=== PATIENT | male | born 1990 ===

== ENCOUNTER 2016-08-01 15:04 | Emergency (ER) | payer MEDICAID ==
[2016-08-01 16:01] VITALS: BP 122/72; PULSE 64; RESP 16; TEMP 98.7; O2SAT 98
--- NOTE | 2016-08-01 16:06 | ED PDOC ---
HPI: General Adult Time Seen by Provider: 08/01/16 15:38 Chief Complaint (Nursing): Lower Extremity Problem/Injury History Per: Patient Onset/Duration Of Symptoms: Days Current Symptoms Are (Timing): Still Present Additional Complaint(s): 26-year-old male, presents to the emergency department with complaints of foot pain. Patient states he sustained an inversion injury to his left foot while playing basketball a few weeks ago. Patient was seen in [place] and had a negative x-ray. States that pain persisted with associated swelling; the patient was seen outpatient by Dr. Beverly, had an x-ray that revealed a talus fracture, resulting in him being sent to the ED for further evaluation and admission for surgery. Patient denies numbness/weakness, nausea/vomiting, fevers , chills, or any other associated symptoms. No other complaints at this time. Past Medical History Reviewed: Historical Data, Nursing Documentation, Vital Signs Vital Signs: Last Vital Signs Temp 98.7 F 08/01/16 15:56 Pulse 64 08/01/16 15:56 Resp 16 08/01/16 15:56 BP 122/72 08/01/16 15:56 Pulse Ox 98 08/01/16 16:23 - Family History Family History: States: Unknown Family Hx - Immunization History Hx Tetanus Toxoid Vaccination: No Hx Influenza Vaccination: No Hx Pneumococcal Vaccination: No - Home Medications Home Medications: Ambulatory Orders Medication Instructions Recorded Famotidine [Pepcid] 40 mg PO DAILY #10 tablet 07/22/16 Naproxen 500 mg PO BID PRN #14 tab 07/22/16 - Allergies Allergies/Adverse Reactions: Allergies Allergy/AdvReac Type Severity Reaction Status Date / Time peanut Allergy RASH Verified 08/01/16 16:22 seafood Allergy Mild ITCHING Uncoded 08/01/16 15:55 Review of Systems ROS Statement: Except As Marked, All Systems Reviewed And Found Negative Constitutional: Negative for: Fever, Chills Gastrointestinal: Negative for: Nausea, Vomiting Musculoskeletal: Positive for: Foot Pain Physical Exam - Reviewed Nursing Documentation Reviewed: Yes Vital Signs Reviewed: Yes - Physical Exam Appears: Positive for: Non-toxic, No Acute Distress Head Exam: Positive for: ATRAUMATIC, NORMOCEPHALIC Skin: Positive for: Warm, Dry. Negative for: Rash Neck: Positive for: Painless ROM Respiratory: Negative for: Accessory Muscle Use, Respiratory Distress Extremity: Positive for: Tenderness, Capillary Refill (<2 SECONDS), Swelling, Other (LEFT LOWER EXT: MILD SWELLING AND TENDERNESS. ). Negative for: Pedal Edema, Calf Tenderness, Deformity Neurologic/Psych: Positive for: Alert, Oriented - ECG O2 Sat by Pulse Oximetry: 98 Medical Decision Making Medical Decision Making: Impression: 26y/o M, w/ Talus fracture diagnosed outpatient. Prior Visits Notes and records from previous visits were reviewed. Patient seen in [place] ED and had x-ray on 07/22/16, which did not reveal any acute findings. Plan: * CT: Lower Ext * Reassess and Disposition * Progress: Patient evaluated in ED podiatry resident, who states he will re-evaluate and discuss admission after CT results are back. podiatry evaluated pt and CT scan at this time no emergent surgery need placed in post. splint and advised to have f/u in 2 weeks for outpt surgery/ Scribe Attestation: Documented by Simone Fowler, acting as a scribe for LISETH Bar. Provider Attestation: All medical record entries made by the Scribe were at my direction and personally dictated by me. I have reviewed the chart and agree that the record accurately reflects my personal performance of the history, physical exam, medical decision making, and the department course for this patient. I have also personally directed, reviewed, and agree with the discharge instructions and disposition. Disposition - Clinical Impression Clinical Impression: Ankle fracture - Patient ED Disposition Is Patient to be Admitted: No Counseled Patient/Family Regarding: Studies Performed, Diagnosis, Need For Followup - Disposition Referrals: Podiatry Clinic [Outside] Disposition: Routine/Home Disposition Time: 17:47 Condition: STABLE Instructions: Ankle Fracture (ED)
--- NOTE | 2016-08-01 17:26 | CT ---
PROCEDURE: HISTORY: ankle pain fx to talus COMPARISON: TECHNIQUE: FINDINGS: Minimal avulsion fracture along the medial malleolus with scattered tiny bony fragments in the medial gutter the largest measuring roughly 4 millimeters. The largest is well defined and is probably chronic. Otherwise the ankle mortise and subtalar joint are intact. No gross displaced IMPRESSION: Fracture is observed. There is no significant joint effusion. The soft tissues are otherwise unremarkable. Likely chronic medial malleolar avulsion fracture with scattered tiny but relatively well-defined osseous fragments in the medial gutter.
--- NOTE | 2016-08-01 17:28 | CP.PCM.CON ---
History of Present Illness - History of Present Illness History of Present Illness: Podiatry Consult Note. 26 year old male seen in [facility] concerning left ankle pain s/p left ankle injury suffered 3 weeks prior. Pt followed up with attending. Dr. Beverly in office who recommended pt to [facility] ER as due o chroicity of symptoms. Pt rports he has remained no weight-bearing to the left leg using splint and crutches, and has taken prescribed NSAIDS, which he noted have greatly reduced swelling. Pt deneis recent f/c/cp/sob/n/v. PMD: none PMH: Denies remarkable medical history. PSH: Denies surgical history. All: Seafood, peanuts Socia hx: Employed, homed. Admits to marijuana usage. Denies tobacco use, and alcohol abuse. Fam Hx: Denies remarkable family health history. ROS: Reviewed and found to be negative outside of HPI. Review of Systems - Review of Systems All systems: reviewed and no additional remarkable complaints except Past Patient History - Infectious Disease Hx of Infectious Diseases: None - Past Social History Smoking Status: Former Smoker - PSYCHIATRIC Hx Psychophysiologic Disorder: No Hx Substance Use: No - SURGICAL HISTORY Hx Surgeries: No - ANESTHESIA Hx Anesthesia: No Meds Allergies/Adverse Reactions: Allergies Allergy/AdvReac Type Severity Reaction Status Date / Time peanut Allergy RASH Verified 08/01/16 16:22 seafood Allergy Mild ITCHING Uncoded 08/01/16 15:55 Physical Exam - Constitutional Appears: Well, Non-toxic, No Acute Distress - Extremities Exam Additional comments: Left lower Extremity focused. VASC: DP and PT pulses are fully palpable bilaterally, graded 2/4. Mild non- pitting edema noted at level of ankle joint. Temperature gradient runs warms to cool from proximal leg to distal foot within normal limits. CRF <3 seconds to ll 10 digits. DERM: No open wounds or macerations noted. No abrasion, bite pineda, hyperpigmentations, or cixatrix noted bilaterally. Nails are normorophic. NEURO: Protective sensation grossly intact. ORTHO: Pedal muscle strength is graded 5/5 in all 4 major pedal muscle groups. Tenderness to palpation noted along medial malleolus, and long stress plantar- flexion and dorsi-flexion of ankle joint. No pain illicited in mid-tarsal inversion and eversion not in STJ range of motion. - Neurological Exam Neurological exam: Alert, Oriented x3 - Psychiatric Exam Psychiatric exam: Normal Affect, Normal Mood - Skin Skin Exam: Intact, Normal Color, Warm Results - Vital Signs Recent Vital Signs: Last Vital Signs Temp 98.7 F 08/01/16 15:56 Pulse 64 08/01/16 15:56 Resp 16 08/01/16 15:56 BP 122/72 08/01/16 15:56 Pulse Ox 98 08/01/16 16:23 Assessment & Plan - Assessment and Plan (Free Text) Assessment: 26 year old male with left ankle closed, displaced medial malleolar fracture. Plan: Pt seen and evaluated, Discussed with attending . - Left Foot CT scan ordered, results reviewed, no talar fracture noted, medial malleolar fracture noted. - Discussed with patient Ct finding and need for surgical intervention of displaced malleolus and fragments within ankle joint space. - Pt to be Non-weightbearing in below knee cast w/ axillary crutches. - All patients questions and concerns were addressed to patient's satisfaction. F/U in [facility] podiatry clinic within 1 week for surgical planning. - Date & Time Date: 08/01/16 Time: 16:00
== END 2016-08-01 18:20 | disposition home or self-care (01) ==
LOC: H.ER 15:04
DX: S92.102A Unspecified fracture of left talus, initial encounter for closed fracture (principal); X50.9XXA Other and unspecified overexertion or strenuous movements or postures, initial encounter; Y92.320 Baseball field as the place of occurrence of the external cause

== ENCOUNTER 2016-08-12 06:27 | Day surgery (SDC) | payer MEDICAID ==
[2016-08-04 15:13] VITALS: BMI 27.8
[2016-08-12 07:01] VITALS: RESP 18
[2016-08-12] MEDS ORDERED: Phenylephrine 10 mg/ml Inj ONE (07:04)
[2016-08-12] MEDS ORDERED: Rocuronium 10 mg/ml (5 ml) ONE (07:04)
[2016-08-12] MEDS ORDERED: Midazolam 2 MG/2 ML VIAL ONE (07:04)
[2016-08-12] MEDS ORDERED: Succinylcholine 200 mg/10 ml Inj IV ONE (07:04)
[2016-08-12] MEDS ORDERED: Propofol 10 mg/ml Inj (20 ML) ONE ×2 (07:04→07:54)
--- NOTE | 2016-08-12 07:12 | CP.PCM.PN ---
Subjective - Date & Time of Evaluation Date of Evaluation: 08/12/16 Time of Evaluation: 06:50 - Subjective Subjective: 26 year old male seen at bedside concerning left ankle fracture suffered 4 weeks prior. Pt has failed conservative management with cast and is now in need of surgical intervention. Pt reports he has been NPO since 9pm yesterday evening. Pt denies pain at this time to the affected ankle. Pt denies recent f/c /cp/sob/n/v. Objective - Vital Signs/Intake and Output Vital Signs (last 24 hours): Temp Pulse Resp BP Pulse Ox 98.2 F 66 18 133/74 99 08/12/16 07:00 08/12/16 07:04 08/12/16 07:00 08/12/16 07:00 08/12/16 07:00 - Constitutional Appears: Well, Non-toxic, No Acute Distress - Extremities Exam Additional comments: Left ankle focused. Cast intact to left ankle and is clean, dry, and intact Neuro-vascular and sensory motor function intact to level of digits bilaterally. - Neurological Exam Neurological Exam: Alert, Awake, Oriented x3 - Psychiatric Exam Psychiatric exam: Normal Affect, Normal Mood Assessment and Plan - Assessment and Plan (Free Text) Assessment: 26 year old male with left ankle closed, displaced medial malleolar fracture. Plan: Pt was seen and examined in [facility] Pt NPO status was confirmed All Pre-op testing and clearance was in the chart Pt has exhausted all conservative treatment at this time and is opting for surgical intervention Pt was explained procedure and post-operative course All pt's questions were answered to satisfaction No guarantees were made Pt understands all risks, benefits and complications of procedure Pt will follow-up with Dr. Haddad.
--- NOTE | 2016-08-12 07:17 | CP.SDSHP ---
Same Day Surgery H & P - History Proposed Procedure: Left ankle ORIF Pre-Op Diagnosis: Left ankle closed, displaced medial malleolar fracture. - Previous Medical/Surgical History Pain: 0. No Pain Previous Surgical History: No prior surgeries. - Allergies Allergies: Allergies peanut Allergy (Verified 08/01/16 16:22) RASH seafood Allergy (Mild, Uncoded 08/01/16 15:55) ITCHING - Current Medications Current Medications: None. - Physical Exam Vital Signs: Vital Signs 08/12/16 08/12/16 07:00 07:04 Temperature 98.2 F Pulse Rate 66 66 Respiratory 18 Rate Blood Pressure 133/74 O2 Sat by Pulse 99 Oximetry Mental Status: Alert & Oriented x3 Neuro: WNL Heart: WNL Lungs: WNL GI: WNL - {Optional Preform as Required} Integument: WNL Ortho: Other (NRadiographic noted medial ankle fracture. Full exam deffered due to cast remaining inplace until procedure. Neuro-muscular status and sensory motor function intact to level of digits bilaterally.) - Impression Impression: Pt was seen and examined in [facility]. Pt NPO status was confirmed. All Pre-op testing and clearance was in the chart. Pt has exhausted all conservative treatment at this time and is opting for surgical intervention. Pt was explained procedure and post-operative course. All pt's questions were answered to satisfaction. No guarantees were made. Pt understands all risks, benefits and complications of procedure. Pt will follow-up with Dr. Haddad. Pt. Evaluated Today:Candidate for Anesthesia & Procedure: Yes - Date & Time Date: 08/12/16 Time: 06:50 Short Stay Discharge - Short Stay Discharge Admitting Diagnosis/Reason for Visit: S82.52XA Disposition: HOME/ ROUTINE Medications: oxyCODONE/Acetaminophen [Percocet 5/325 mg Tab] 1 tab PO Q4 PRN #30 tab PRN Reason: Pain, Moderate (4-7) Referrals: FAMILY PROVIDER,NO [Primary Care Provider] - Vasiliy Haddad DPM [Staff Provider] - Follow-up: Follow-up in office within 1 week. Instructions: Oxycodone/Acetaminophen (By mouth), RICE Therapy (GEN) Additional Instructions (Diet, Activity): Patient in good/stable condition for discharge home. Pt to resume medications per medical reconciliation. Resume regular diet. Please keep dressing clean, dry, & intact to surgical site, use plastic bag over bandage for showering, wear post op shoe at all times when ambulating, call clinic if you see signs of infection (redness, swelling, malodor), please make an appointment to see Dr. Haddad in office within 1 week for post-op check. Progress Note/Discharge Note with Instructions: - Patient evaluated bedside in recovery s/p surgical procedure. - After surgical procedure patient in NAD - (+) Void, (+) Appetite - Capillary refill time <3s and NVSI intact. - Patient denies complaints at this time - Post operative instructions and plan of care explained to patient at length. - Pt. acknowledges understanding. - Patient stable for DC per podiatric surgery
[2016-08-12] MEDS ORDERED: Bupivacaine 0.5% Inj(30mL) ONE (07:18)
[2016-08-12] MEDS ORDERED: Lidocaine 1% Inj (20ml) ONE (07:18)
[2016-08-12] MEDS ORDERED: Lactated Ringer's 1,000 ML IV ONE (07:45)
[2016-08-12] MEDS ORDERED: Bacitracin Ointment 30 GM TUBE ONE (09:11)
[2016-08-12] MEDS ORDERED: Oxycodone/Acetaminophen 5/325 mg Tab PO PRN ×2 (09:55)
[2016-08-12] MEDS ORDERED: HYDROmorphone 0.5 mg/0.5 ml ISec IVP PRN (09:59)
--- NOTE | 2016-08-12 09:59 | PCM.SURG1 ---
Surgeon's Initial Post Op Note - Surgeon's Notes Surgeon: Dr. Megha Haddad, DPM Power Machine Operator: Dr Benito Thompson, PGY3; Sania Parrish, PGY1 Type of Anesthesia: General Endo, General LMA Anesthesia Administered By: Dr. Arley MD Pre-Operative Diagnosis: Left ankle painful medial malleolar fragments and deltoid ligament injury Operative Findings: See dictation. M: Arthex 3x 14.5 mm small joint suture taks. I: 20 cc's of 0.5% Marcaine Plain Post-Operative Diagnosis: Same as preoperative Operation Performed: Left ankle bone excision and deltoid ligament repair/ augmentation. Specimen/Specimens Removed: Left ankle bone Estimated Blood Loss: EBL {In ML}: 5 Blood Products Given: N/A Drains Used: No Drains Post-Op Condition: Good Date of Surgery/Procedure: 08/12/16 Time of Surgery/Procedure: 08:10
[2016-08-12 11:33] VITALS: TEMP 98.2
--- NOTE | 2016-08-12 11:34 | RAD ---
PROCEDURE: Left Ankle Radiographs. HISTORY: s/p left ankle surgery COMPARISON: 08/01/2016. CT scan left ankle. Summary of findings on the comparison examination: Minimal avulsion fracture medial malleolus. FINDINGS: BONES: Previously identified fracture documented on recent CT scan is not apparent. Detail obscured by overlying fiberglass cast. JOINTS: Normal. No osteoarthritis. Ankle mortise maintained. Talar dome intact SOFT TISSUES: Normal. OTHER FINDINGS: None. IMPRESSION: No acute findings related to/accounting for the clinical presentation.
[2016-08-12] MEDS ORDERED: Oxycodone/Acetaminophen 5/325 mg Tab PO ONE (12:05)
[2016-08-12 12:27] VITALS: BP 138/83; PULSE 62; O2SAT 99
--- NOTE | 2016-08-12 12:53 | OP ---
PROCEDURE DATE: 08/12/2016 SURGEON: Vasiliy Haddad DPM. ASSISTANTS: 1. Home Thompson DPM, PGY-3. 2. Raquel Parrish DPM, PGY-1 ELECTRICAL TIMING DEVICE CALIBRATOR: Dr. Tubbs PREOPERATIVE DIAGNOSES: 1. Left ankle painful medial malleolar fracture fragments. 2. Left ankle deltoid ligament attenuation. POSTOPERATIVE DIAGNOSES: 1. Left ankle painful medial malleolar fracture fragments. 2. Left ankle deltoid ligament attenuation. NAME OF PROCEDURE: 1. Left Ankle - Open Ankle Arthrotomy with excision of medial malleolar fracture fragments 2. Left Ankle - Deltoid ligament repair and augmentation. INDICATIONS: This is a 26-year-old male with the aforementioned diagnoses. The patient was seen approximately 3-[address] Haddad's private office where the patient presented with chronic pain and instability to the medial aspect of his left ankle. The patient was subsequently sent for workup at the [facility] and was subsequently booked for the aforementioned procedures. Today, the patient presents to the operating room where careful explanation of all the risks, benefits, and alternatives to the surgical procedures were explained and no guarantees were made, given, nor implied. PREPARATION: The patient was brought into the operating room, placed on the operating room table in the supine position. A well-padded pneumatic thigh tourniquet was placed on the patient's left thigh at the aforementioned thigh level. After induction of general anesthesia, the left lower extremity was then prepped and draped in the usual sterile manner. A timeout was performed. An Esmarch bandage was utilized to exsanguinate the left foot, ankle, and lower leg. The pneumatic thigh tourniquet was then inflated to 350 mmHg and then the procedure began. PROCEDURE: Attention was now directed to the patient's left medial malleolus where an approximately 6-7 cm curvilinear incision was made overlying the medial malleolus. Prior to our initial incision, a #25-gauge needle was inserted into the medial malleolus and the tip of the needle was located on the dominant fracture fragment as verified with intraoperative fluoroscopy. Next, after our initial skin incision, the incision was deepened through the subcutaneous tissues utilizing a combination of sharp and blunt dissection. Care was taken to identify and retract all vital neurovascular structures and cauterize all bleeders as deemed necessary. The incision was deepened down to the level of the medial malleolar periosteum which was encountered. A fresh #15 -blade was utilized to make a periosteal incision. Next, the periosteal tissues were then carefully dissected free of their osseous attachments, both anteriorly and posteriorly. After our periosteal dissection, the anterior and larger of the 2 fragments became evident. The larger fragment was then grasped with a brown pickup and sharply excised from its soft tissue envelope. Excision was then confirmed with the use of intraoperative fluoroscopy. Next, our attention was directed to the remaining smaller fragment which was slightly inferior to the tip of the medial malleolus. Next, utilizing intraoperative fluoroscopy, the smaller fracture fragment was then located and isolated slightly inferior to the medial malleolus. Next, a brown pickup was now utilized to grasp the remaining fracture fragment and it was subsequently sharply excised from its soft tissue envelope. Both fracture fragments were inspected and noted to contain osseous material. The 2 fragments were then passed off the surgical field as a pathologic specimen. Next, the medial aspect of the ankle joint and our surgical field were visually and radiographically inspected and noted to contain no more loose pieces of osseous material, fracture fragments, or any osteochondral defects within our visual field. Next, the surgical site, including the ankle joint, was now irrigated with a copious amount of normal sterile saline solution. PROCEDURE #2: Next, an Arthrex small SutureTak and appropriate instruments were now sterilely passed onto the operative field. Next, following standard Arthrex protocol for a small SutureTak, the small 2.4 SutureTak was now inserted in an inferior to superior orientation into the distal aspect of the medial malleolus. Next, the 2 strands of suture were removed from the holding device and the holding device was then removed and passed off the surgical field. Next, the 2 strands of FiberWire suture were now utilized to reapproximate the superficial deltoid ligaments. After reapproximation, the foot and ankle were manually inverted and the 2 strands of FiberWire were then tied down upon themselves, thus reapproximating the deltoid ligaments. Next, the free ends of the FiberWire were then cut free and passed from the operative field. The surgical site was now irrigated again with a copious amount of normal sterile saline solution. Next, the periosteal tissues were now reapproximated with #2-0 Vicryl suture. The subcutaneous tissues were reapproximated with #3-0 Vicryl suture. The subcuticular tissues were reapproximated with #4-0 Vicryl suture and then the skin was reapproximated with #4-0 nylon suture in an alternating simple interrupted and interrupted horizontal mattress fashion. Next, the patient received a postoperative injection consisting of 20 mL of 0.5% Marcaine plain in the form of a local field block infiltration to the entire surgical area. Next, the entire foot, ankle, and lower leg were then cleansed and dried. Next, the surgical site was then dressed with a light amount of bacitracin followed by Adaptic and then dry sterile dressings. The pneumatic thigh tourniquet had already been previously deflated prior to dressing application. Next, a standard posterior splint with the ankle held at a 90 degree angle to the leg was now applied to the left lower extremity. POSTOPERATIVE CONDITION: The patient tolerated the anesthesia and procedure well and was escorted to the recovery room with his vital signs stable and his neurovascular status intact to the left foot, ankle, and lower leg as noted by instantaneous hyperemia to all 5 digits of the left foot. The patient will be nonweightbearing to the left lower extremity. The patient will follow up with Dr. Haddad in his office next week. Home Thompson DPM Vasiliy Haddad DPM cc: [id number] TT: 08/12/2016 12:52:19 jackie VIVEROS
== END 2016-08-12 12:52 | disposition home or self-care (01) ==
LOC: H.OPSURG 06:27
PROVIDERS: ATTEND Podiatrist Foot & Ankle Surgery
DX: S82.52XA Displaced fracture of medial malleolus of left tibia, initial encounter for closed fracture (principal); X58.XXXA Exposure to other specified factors, initial encounter

== ENCOUNTER 2017-07-31 10:57 | Emergency (ER) | payer MEDICAID, OTHER ==
[2017-07-31 10:57] VITALS: BMI 27.8
[2017-07-31 11:16] VITALS: BP 131/78; PULSE 62; TEMP 97.6; O2SAT 99
[2017-07-31 12:02] VITALS: RESP 18
--- NOTE | 2017-07-31 13:20 | ED PDOC ---
HPI: Skin/Bite Injury Time Seen by Provider: 07/31/17 12:12 Chief Complaint (Nursing): Upper Extremity Problem/Injury Chief Complaint (Provider): Rash to left axilla History Per: Patient History/Exam Limitations: no limitations Onset/Duration Of Symptoms: Days (x 2 weeks) Current Symptoms Are (Timing): Still Present Quality Of Symptoms: Painful, Itching Additional Complaint(s): Patient reports allergic reaction to left axilla, onset 2 weeks ago. Rash is described as dark in color and itchy. Patient states that since Monday, rash has become painful. He denies any change in soaps, lotion, deodorant, new food or medications. Otherwise: (-) fever, (-) URI symptoms, (-) shortness of breath. PMD: None Past Medical History Reviewed: Historical Data, Nursing Documentation, Vital Signs Vital Signs: Last Vital Signs Temp 97.6 F 07/31/17 12:00 Pulse 62 07/31/17 12:00 Resp 18 07/31/17 12:00 BP 131/78 07/31/17 11:15 Pulse Ox 99 07/31/17 13:27 - Medical History PMH: No Chronic Diseases Denies: Chronic Kidney Disease Other PMH: Eczema (as a child) - Surgical History Other surgeries: Left ankle surgery - Family History Family History: States: Unknown Family Hx - Social History Current smoker - smoking cessation education provided: No Alcohol: Social Drugs: Denies - Immunization History Hx Tetanus Toxoid Vaccination: No Hx Influenza Vaccination: No Hx Pneumococcal Vaccination: No - Home Medications Home Medications: Ambulatory Orders Medication Instructions Recorded Naproxen [Naprosyn] 500 mg PO PRN PRN 08/12/16 oxyCODONE/Acetaminophen [Percocet 1 tab PO Q4 PRN #30 tab 08/12/16 5/325 mg Tab] Cephalexin [Keflex] 500 mg PO Q6 #28 capsule 07/31/17 Clotrimazole 1% Cream [Lotrimin 1%] 30 applic EXT BID #1 tube 07/31/17 - Allergies Allergies/Adverse Reactions: Allergies Allergy/AdvReac Type Severity Reaction Status Date / Time peanut Allergy RASH Verified 08/01/16 16:22 seafood Allergy Mild ITCHING Uncoded 08/01/16 15:55 Review of Systems ROS Statement: Except As Marked, All Systems Reviewed And Found Negative Constitutional: Negative for: Fever, Chills ENT: Negative for: Throat Pain, Throat Swelling Respiratory: Negative for: Shortness of Breath Musculoskeletal: Negative for: Arm Pain Skin: Positive for: Rash, Other (itchiness) Physical Exam - Reviewed Nursing Documentation Reviewed: Yes Vital Signs Reviewed: Yes - Physical Exam Comments: GENERAL APPEARANCE: Patient is awake, alert, oriented x 3, in no acute distress SKIN: (+) hyperpigmented rash to left axilla with satellite lesions, (+) erythema to the center of the rash; (-) red streaking, (-) surrounding erythema , (-) edema HENT: (-) conjunctival injection, (-) chemosis. Oropharynx: clear (-) tongue or lip swelling, (-) tonsillar exudates, (-) erythema. Airway: patent (-) stridor, (-) hoarseness. Mucous membranes moist. Nares: Patent (-) rhinorrhea. NECK: (-) lymphadenopathy, (-) tenderness. CARDIOVASCULAR: Normal rate and rhythm. (-) murmur, (-) gallop. CHEST: (-) rales, (-) wheezing, (-) dyspnea, (-) stridor. Breath sounds equal bilaterally. ABDOMEN: Soft. (-) tenderness, (-) distention, (-) HSM. NEURO: Mental status: Patient is alert, oriented, and with normal strength and tone. - ECG O2 Sat by Pulse Oximetry: 99 (RA) Pulse Ox Interpretation: Normal Medical Decision Making Medical Decision Making: Impression: Tinea corpus with possible secondary bacterial infection Based on history and exam plan will be for discharge home, prescriptions provided for PO Keflex and 1% Clotrimazole cream. Diagnosis discussed with patient in great detail. Advised to follow up with the clinic or with dermatology, referral provided. Advised to take medication as prescribed. Return to the emergency room at any time for any new or worsening symptoms. Patient states he fully agrees with and understands discharge instructions. States that he agrees with the plan and disposition. Verbalized and repeated discharge instructions and plan. I have given the patient opportunity to ask any additional questions. Scribe Attestation: Documented by Dafne Steel, acting as a scribe for Maria Dolores Wu PA-C. Provider Scribe Attestation: All medical record entries made by the Scribe were at my direction and personally dictated by me. I have reviewed the chart and agree that the record accurately reflects my personal performance of the history, physical exam, medical decision making, and the department course for this patient. I have also personally directed, reviewed, and agree with the discharge instructions and disposition. Disposition - Clinical Impression Clinical Impression: Tinea corporis, Skin infection - Patient ED Disposition Is Patient to be Admitted: No Counseled Patient/Family Regarding: Diagnosis, Need For Followup, Rx Given - Disposition Referrals: [facility] [Outside] Alejo Rollins MD [Staff Provider] - Disposition: Routine/Home Disposition Time: 12:15 Condition: STABLE Additional Instructions: Thank you for letting us take care of you today. You were treated for tinea corporis with secondary bacterial skin infection. The emergency medical care you received today was directed at your acute symptoms. If you were prescribed any medication, please fill it and take as directed. It may take several days for your symptoms to resolve. Return to the Emergency Department if your symptoms worsen, do not improve, or if you have any other problems. Please call one of the physicians/clinics you have been referred to that are listed on the Patient Visit Information form that is included in your discharge packet. Bring any paperwork you were given at discharge with you along with any medications you are taking to your follow up visit. Our treatment cannot replace ongoing medical care by a primary care provider (PCP) outside of the emergency department. [facility]. Prescriptions: Cephalexin [Keflex] 500 mg PO Q6 #28 capsule Clotrimazole 1% Cream [Lotrimin 1%] 30 applic EXT BID #1 tube Instructions: Ringworm, Wound Infection Forms: [employer] ([place]), [facility] ED School/Work Excuse - POA Present On Arrival: None - PA / [employer] / Resident Statement MD/DO has reviewed & agrees with the documentation as recorded.
== END 2017-07-31 12:44 | disposition home or self-care (01) ==
LOC: H.ER 10:57
DX: B35.4 Tinea corporis (principal)